=== PATIENT | male | born 1970 | race Caucasian/White ===

== ENCOUNTER → 2018-01-24 | Outpatient (CLI) | payer BC, OTHER ==
[~2018-01-24] MED LIST: REGADENOSON 0.4 MG/5 ML DISP.SYRIN. IV ONE
--- NOTE | 2018-01-24 13:04 | PCVCIMAG ---
APPROVED REPORT Imaging Protocol: Rest Tc-99m/Stress Tc-99m 1 day Study performed: 01/24/2018 08:38:24 Indication: Cardiomyopathy, CAD, Dyspnea Patient Location: Out-Patient Stress Nurse: Deirdre Boyle RN, Karley Luna RN NM Tech:Nitin BarakatIVORY Ht: 5 ft 6 in Wt: 178 lbs BSA: 1.90 m2 HR: 66 bpm BP: 174/81 mmHg BMI: 28.72 Rhythm: Normal Sinus Rhythm Medical History Medical History: Age, Hyperlipidemia, HTN, CAD, GA, DM, Former Smoker Medications: Lipitor, Coreg, Zetia, Novolog, Ramipril, ASA Allergies: Crestor, Tape Previous Cardiac Procedures: PCI, GA Pretest Chest Pain Characteristics: No chest pain Exercise History: Physically active Meds Held (24 hrs): Coreg Resting Data Rest SPECT myocardial perfusion imaging was performed in supine position 45 minutes following the intravenous injection of 10.8 mCi of Tc-99m Sestamibi. Time of rest injection: 814 Date: 01/24/2018 Administration Route: IV Administration Site: Right Hand Pharmacologic Stress Pharmacologic stress test was performed by injecting Regadenoson 0.4 mg IV push over 10-15 seconds immediately followed by the intravenous injection of 32.1 mCi of Tc-99m Sestamibi. Time of stress injection: 929 Date: 01/24/2018 Administration Route: IV Administration Site: Right Hand Gated Stress SPECT was performed 45 minutes after stress injection. The images were gated to evaluate regional wall motion and calculate left ventricular ejection fraction. Stress Test Details Stress Test: Pharmacologic stress testing performed using 0.4 mg of regadenoson per 5 mL given IV over 10 seconds. Reason for pharmacologic stress test: SOA and Headache. HRMax Heart Rate (APMHR): 172 bpm Resting HR: 66 bpmTarget HR (85% APMHR): 146 bpm Max HR Achieved: 113 bpm % of APMHR: 65 Recovery HR: 77 bpm BP Resting BP: 174/81 mmHg Max BP: 122/76 mmHg Recovery BP: 161/90 mmHg ECG Resting ECG: Sinus Rhythm Stress ECG: Sinus Tachycardia ST Change: Non-ischemic Arrhythmia: None Recovery ECG: Sinus Rhythm Clinical Reason for Termination: Completed protocol Stress Symptoms: Leg Fatigue, Lightheaded Symptoms resolved with caffeine. Study Quality Study: Good Study Data Post stress, the left ventricular ejection was 39%.. SSS: 18 SRS: 20 SDS: 0 Perfusion There is a medium area of moderately reduced uptake in the mid and apical segment of the anteroseptal wall which is seen on the stress images as well as the resting images. This area thickens and moves normally and is most consistent with myocardial scar. Wall Motion Moderately decreased left ventricular systolic function. Nuclear Conclusion ECG Findings: negative for ischemia Clinical Findings: non-diagnostic Nuclear Findings: positive for infarct Exercise Capacity: not assessed Left Ventricular Function: abnormal There is a nontransmural infarct in the mid and apical segment of the anteroseptal wall. There is moderate segmental LV dysfunction, EF of 39%.
== END | disposition home or self-care (01) ==
LOC: PCVCIMAG 07:35
PROVIDERS: ATTEND Internal Medicine Cardiovascular Disease
DX: I25.10 Atherosclerotic heart disease of native coronary artery without angina pectoris (principal); I42.9 Cardiomyopathy, unspecified; R06.00 Dyspnea, unspecified; E78.5 Hyperlipidemia, unspecified; I10 Essential (primary) hypertension; E11.9 Type 2 diabetes mellitus without complications; Z87.891 Personal history of nicotine dependence
CPT/HCPCS: 78452; 93017; A9500; J2785

== ENCOUNTER → 2018-09-15 | Outpatient (CLI) | payer BC ==
--- NOTE | 2018-09-15 14:23 | PCVCIMAG ---
EXAM: BILATERAL CAROTID DUPLEX INDICATION: Syncope. FINDINGS: Doppler Measurements (centimeters per second): RIGHT: Peak CCA-74, Peak ECA-109, Diastolic ICA-17, Peak ICA-79, ICA/CCA Ratio-1.1. LEFT: Peak CCA-105, Peak ECA-113, Diastolic ICA-11, Peak ICA-80, ICA/CCA Ratio-0.8. RIGHT CAROTID: The carotid bulb has minimal plaque. The proximal internal carotid artery shows no significant stenosis. The common carotid artery shows no significant stenosis. The external carotid artery shows no significant stenosis. LEFT CAROTID: The carotid bulb has minimal plaque. The proximal internal carotid artery shows no significant stenosis. The common carotid artery shows no significant stenosis. The external carotid artery shows no significant stenosis. Antegrade flow in both vertebral arteries. IMPRESSION: No significant stenosis of the right internal carotid artery with minimal plaque. No significant stenosis of the left internal carotid artery with minimal plaque. LOC:[place] [id number]
== END | disposition home or self-care (01) ==
LOC: PCVCIMAG 13:05
PROVIDERS: ATTEND Internal Medicine Cardiovascular Disease
DX: I25.811 Atherosclerosis of native coronary artery of transplanted heart without angina pectoris (principal); I42.9 Cardiomyopathy, unspecified; R55 Syncope and collapse; I10 Essential (primary) hypertension; E78.00 Pure hypercholesterolemia, unspecified; Z88.8 Allergy status to other drugs, medicaments and biological substances; Z91.048 Other nonmedicinal substance allergy status
CPT/HCPCS: 93880